=== PATIENT | male | born 1990 | race American Indian/Alaskan Native ===

== ENCOUNTER 2020-10-08 20:56 | Emergency (ER) | payer SELFPAY ==
--- NOTE | 2020-10-08 23:30 | Event Note ---
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 Further treatment and workup at subsequent clinical providers discretion. Patient/guardian urged not to elope from the ED as their condition may be serious if not clinically assessed and managed. Initial orders include: labs, UA, CT, US
--- NOTE | 2020-10-09 00:04 | Cat Scan Report ---
CT ABDOMEN AND PELVIS WITHOUT CONTRAST HISTORY: Patient complains of lower back pain that radiates to his groin x 3 days.. COMPARISON: None. TECHNIQUE: CT images of the abdomen and pelvis were obtained without administration of intravenous co ntrast. All CT scans at this location are performed using CT dose reduction for ALARA by means of au tomated exposure control. FINDINGS: Lungs/bones: Lung bases are clear. No acute osseous abnormality identified. Abdomen/pelvis: The liver, gallbladder, spleen, pancreas, adrenals, kidneys, and proximal GI tract a ppear unremarkable for limited noncontrast technique. Urinary bladder and prostate are unremarkable with no pelvic free fluid. No acute colonic abnormality identified. The appendix is normal. IMPRESSION: 1. No acute abnormality identified on this limited noncontrast exam. Signer Name: Pasquale Wong MD Signed: 10/09/2020 12:00 AM Workstation Name: [id number]
[2020-10-09 00:52] LABS: Basophils # (Auto) 0.1 K/mm3 (0.0-0.1); Basophils % (Auto) 1.2 % (0.0-1.8); Eosinophils # (Auto) 0.2 K/mm3 (0.0-0.4); Eosinophils % (Auto) 2.7 % (0.0-4.3); Hematocrit 45.3 % (35.5-45.6); Hemoglobin 15.3 gm/dl (11.8-15.2); Lymphocytes # (Auto) 2.1 K/mm3 (1.2-5.4); Lymphocytes % (Auto) 34.8 % (13.4-35.0); Mean Corpuscular HGB Conc 34 % (32-34); Mean Corpuscular Volume 89 fl (84-94); Monocytes # (Auto) 0.5 K/mm3 (0.0-0.8); Monocytes % (Auto) 7.8 % (0.0-7.3); Platelet Count 257 K/mm3 (140-440); Red Blood Count 5.11 M/mm3 (3.65-5.03); Red Cell Distribution Width 13.5 % (13.2-15.2)
[2020-10-09 01:03] LABS: Alanine Aminotransferase 17 units/L (7-56); Albumin 4.7 g/dL (3.9-5); BUN/Creatinine Ratio 12; Blood Urea Nitrogen 15 mg/dL (9-20); Calcium 9.8 mg/dL (8.4-10.2); Hemolysis Index 7
[2020-10-09 01:26] LABS: Bilirubin,Urine NEG (Negative); Blood,Urine NEG (Negative); Color,Urine Yellow (Yellow); Mucus,Urine FEW /HPF
--- NOTE | 2020-10-09 02:38 | Ultrasound Report ---
Scrotal Ultrasound HISTORY: left testicular pain. TECHNIQUE: Grayscale and color imaging performed. COMPARISON: CT abdomen from today FINDINGS: There is a 4 mm parenchymal calcification within the right testicle. Otherwise the testicle s are normal in size and appearance with preserved blood flow. Each epididymal head is normal in size and appearance as well. No hydrocele or varicocele. IMPRESSION: 1. No acute abnormality. 2. Incidental tiny calcification in the right epididymis could represent sequelae of prior infection or trauma. Signer Name: Pasquale Wong MD Signed: 10/09/2020 2:34 AM Workstation Name: [id number]
[2020-10-09] MEDS ORDERED: predniSONE 20 MG TAB PO ONE (04:01)
[2020-10-09] MEDS ORDERED: HYDROcodone/ACETAMINOPHEN 10-325MG TAB PO ONE (04:01)
[2020-10-09] MEDS ORDERED: KETOROLAC 60 MG/2 ML INJ IM ONE (04:01)
--- NOTE | 2020-10-09 05:00 | Emergency Department Report ---
ED Back Pain/Injury HPI - General Chief Complaint: Back Pain/Injury Stated Complaint: BACK PAINS Time Seen by Provider: 10/08/20 23:28 Source: patient Limitations: No Limitations - History of Present Illness Initial Comments: This is a 30-year-old male nontoxic, well nourished in appearance, no acute signs of distress presents to the ED with c/o of acute lower back pain with ra diation to groin area. Patient stated that the past 2 days he was moving and developed this pain. Patient denies any trauma or injuries. 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 Denies any bladder or bowel instability. Patient denies any urinary symptoms. Denies any fever, chills, nausea, vomiting, headache, stiff neck, chest pain or shortness of breath. Patient denies any numbness or tingling. Denies any allergies. Denies significant past medical history. MD Complaint: back pain -: days(s) Similar Symptoms Previously: Yes Place: work Radiation: groin Severity: mild Severity scale (0 -10): 8 Quality: aching Consistency: intermittent Improves With: immobilization, sitting upright Worsens With: movement, walking Context: while lifting, turning/twisting Associated Symptoms: denies other symptoms. denies: confusion, weakness, chest pain, numbness, difficulty walking, cough, difficulty urinating, diaphoresis, incontinence, fever/chills, constipation, headaches, abdominal pain, loss of appetite, malaise, nausea/vomiting, rash, seizure, shortness of breath, syncope - Related Data Previous Rx's Medication Instructions Recorded Last Taken Type Cyclobenzaprine [Flexeril] 10 mg PO QHS PRN #10 tablet 10/09/20 Unknown Rx Naproxen 500 mg PO Q12H PRN #12 tablet 10/09/20 Unknown Rx Allergies Allergy/AdvReac Type Severity Reaction Status Date / Time egg Allergy Swelling Verified 10/08/20 22:26 shellfish derived Allergy Rash Verified 10/08/20 22:26 ED Review of Systems ROS: Stated complaint: BACK PAINS Other details as noted in HPI Comment: All other systems reviewed and negative Constitutional: denies: chills, fever Eyes: denies: eye pain, eye discharge, vision change ENT: denies: ear pain, throat pain Respiratory: denies: cough, shortness of breath, wheezing Cardiovascular: denies: chest pain, palpitations Endocrine: no symptoms reported Gastrointestinal: denies: abdominal pain, nausea, vomiting, diarrhea Genitourinary: denies: urgency, dysuria Musculoskeletal: back pain. denies: joint swelling, arthralgia Skin: denies: rash, lesions Neurological: denies: headache, weakness, paresthesias Psychiatric: denies: anxiety, depression Hematological/Lymphatic: denies: easy bleeding, easy bruising ED Past Medical Hx - Past Medical History Previous Medical History?: No - Surgical History Past Surgical History?: No - Social History Smoking Status: Never Smoker Substance Use Type: None - Medications Home Medications: Home Medications Medication Instructions Recorded Confirmed Last Taken Type Cyclobenzaprine [Flexeril] 10 mg PO QHS PRN #10 tablet 10/09/20 Unknown Rx Naproxen 500 mg PO Q12H PRN #12 tablet 10/09/20 Unknown Rx ED Physical Exam - General Limitations: No Limitations General appearance: alert, in no apparent distress - Head Head exam: Present: atraumatic, normocephalic - Eye Eye exam: Present: normal appearance - Neck Neck exam: Present: normal inspection, full ROM. Absent: tenderness, meningismus, lymphadenopathy - Respiratory Respiratory exam: Absent: respiratory distress - Cardiovascular Cardiovascular Exam: Present: regular rate - GI/Abdominal GI/Abdominal exam: Present: soft, normal bowel sounds. Absent: distended, tenderness, guarding, rebound, rigid, diminished bowel sounds - exam: Present: normal inspection. Absent: testicular tenderness, urethral discharge, scrotal swelling, vertical testicular lie, circumcision External exam: Present: normal external exam. Absent: erythema, swelling, lesions, lacerations, ecchymosis, bleeding - Extremities Exam Extremities exam: Present: normal inspection, full ROM. Absent: tenderness - Back Exam Back exam: Present: normal inspection, full ROM, paraspinal tenderness (lumbar paraspinal). Absent: tenderness, CVA tenderness (R), CVA tenderness (L), muscle spasm, vertebral tenderness, rash noted - Expanded Back Exam Expanded Back exam: Absent: saddle anesthesia Back exam: Negative Straight Leg Raising: Left, Right - Neurological Exam Neurological exam: Present: alert, oriented X3, normal gait - Psychiatric Psychiatric exam: Present: normal affect, normal mood - Skin Skin exam: Present: warm, dry, intact, normal color. Absent: rash ED Course Vital Signs 10/08/20 22:28 Temperature 98.6 F Pulse Rate 76 Respiratory 16 Rate Blood Pressure 104/66 O2 Sat by Pulse 98 Oximetry - Reevaluation(s) Reevaluation #1: 10/09/20 05:02 Patient is speaking in full sentences with no signs of distress noted. ED Medical Decision Making - Lab Data Result diagrams: 10/08/20 23:55 10/09/20 Unknown Lab Results 10/08/20 10/08/20 10/09/20 Range/Units 23:55 Unknown Unknown WBC 5.9 (4.5-11.0) K/mm3 RBC 5.11 H (3.65-5.03) M/mm3 Hgb 15.3 H (11.8-15.2) gm/dl Hct 45.3 (35.5-45.6) % MCV 89 (84-94) fl MCH 30 (28-32) pg MCHC 34 (32-34) % RDW 13.5 (13.2-15.2) % Plt Count 257 (140-440) K/mm3 Lymph % (Auto) 34.8 (13.4-35.0) % [place] % (Auto) 7.8 H (0.0-7.3) % Eos % (Auto) 2.7 (0.0-4.3) % Baso % (Auto) 1.2 (0.0-1.8) % Lymph # (Auto) 2.1 (1.2-5.4) K/mm3 [place] # (Auto) 0.5 (0.0-0.8) K/mm3 Eos # (Auto) 0.2 (0.0-0.4) K/mm3 Baso # (Auto) 0.1 (0.0-0.1) K/mm3 Seg Neutrophils % 53.5 (40.0-70.0) % Seg Neutrophils # 3.2 (1.8-7.7) K/mm3 Sodium 142 (137-145) mmol/L Potassium 4.7 (3.6-5.0) mmol/L Chloride 102.5 (98-107) mmol/L Carbon Dioxide 29 (22-30) mmol/L Anion Gap 15 mmol/L BUN 15 (9-20) mg/dL Creatinine 1.3 (0.8-1.3) mg/dL Estimated GFR > 60 ml/min BUN/Creatinine Ratio 12 % Glucose 86 (75-100) mg/dL Calcium 9.8 (8.4-10.2) mg/dL Total Bilirubin 0.50 (0.1-1.2) mg/dL AST 24 (5-40) units/L ALT 17 (7-56) units/L Alkaline Phosphatase 54 (35-129) units/L Total Protein 7.1 (6.3-8.2) g/dL Albumin 4.7 (3.9-5) g/dL Albumin/Globulin Ratio 2.0 % Urine Color Yellow (Yellow) Urine Turbidity Clear (Clear) Urine pH 6.0 (5.0-7.0) Ur Specific [place] 1.030 (1.003-1.030) Urine Protein 30 mg/dl (Negative) mg/dL Urine Glucose (UA) Neg (Negative) mg/dL Urine Ketones Neg (Negative) mg/dL Urine Blood Neg (Negative) Urine Nitrite Neg (Negative) Urine Bilirubin Neg (Negative) Urine Urobilinogen 4.0 (<2.0) mg/dL Ur Leukocyte Esterase Neg (Negative) Urine WBC (Auto) 3.0 (0.0-6.0) /HPF Urine RBC (Auto) 2.0 (0.0-6.0) /HPF U Epithel Cells (Auto) < 1.0 (0-13.0) /HPF Urine Mucus Few /HPF - Radiology Data Referring Physician: ASHKAN DANIEL Patient Name: CHRISTINE BERMUDEZ Date of : 1990 Sex: Male Report Date: 2020-10-08 Report Status: Finalized [address] [address] Cat Scan Report Signed Patient: CHRISTINE BERMUDEZ MR#: [id number] 2 : 1990 Acct:[id number] Age/Sex: 30 / M ADM Date: 10/08/20 Loc: ED Attending Dr: Ordering Physician: SAURABH ANGEL Date of Service: 10/08/20 Procedure(s): CT abdomen pelvis wo con Accession Number(s): [id number] cc: SAURABH ANGEL CT ABDOMEN AND PELVIS WITHOUT CONTRAST HISTORY: Patient complains of lower back pain that radiates to his groin x 3 days.. COMPARISON: None. TECHNIQUE: CT images of the abdomen and pelvis were obtained without administration of intravenous contrast. All CT scans at this location are performed using CT dose reduction for ALARA by means of automated exposure control. FINDINGS: Lungs/bones: Lung bases are clear. No acute osseous abnormality identified. Abdomen/pelvis: The liver, gallbladder, spleen, pancreas, adrenals, kidneys, and proximal GI tract appear unremarkable for limited noncontrast technique. Urinary bladder and prostate are unremarkable with no pelvic free fluid. No acute colonic abnormality identified. The appendix is normal. IMPRESSION: 1. No acute abnormality identified on this limited noncontrast exam. Signer Name: Pasquale Wong MD Signed: 10/09/2020 12:00 AM Workstation Name: [id number] Transcribed By: SANDRA Dictated By: Pasquale Wong MD Electronically Authenticated By: Pasquale Wong MD Signed Date/Time: 10/09/20 0000 DD/ 2358 TD/TT: Referring Physician: ASHKAN DANIEL Patient Name: CHRISTINE BERMUDEZ Date of : 1990 Sex: Male Report Date: 2020-10-09 Report Status: Finalized [place] [id number] Ultrasound Report Signed Patient: CHRISTINE BERMUDEZ MR#: [id number] 2 : 1990 Acct:[id number] Age/Sex: 30 / M ADM Date: 10/08/20 Loc: ED Attending Dr: Ordering Physician: SAURABH ANGEL Date of Service: 10/08/20 Procedure(s): US testicular doppler comp Accession Number(s): [id number] cc: SAURABH ANGEL Scrotal Ultrasound HISTORY: left testicular pain. TECHNIQUE: Grayscale and color imaging performed. COMPARISON: CT abdomen from today FINDINGS: There is a 4 mm parenchymal calcification within the right testicle. Otherwise the testicles are normal in size and appearance with preserved blood flow. Each epididymal head is normal in size and appearance as well. No hydrocele or varicocele. IMPRESSION: 1. No acute abnormality. 2. Incidental tiny calcification in the right epididymis could represent sequelae of prior infection or trauma. Signer Name: Pasquale Wong MD Signed: 10/09/2020 2:34 AM Workstation Name: [id number] Transcribed By: SANDRA Dictated By: Pasquale Wong MD Electronically Authenticated By: Pasquale Wong MD Signed Date/Time: 10/09/20233 DD/ 2 TD/TT: - Medical Decision Making This is a 30-year-old male that presents with low back strain. Patient is stable was examined by me. There is no spinal tenderness. There is no cauda equina syndrome during examination. Labs and imaging studies has been obtained by previous provider. Patient is notified of the reports with no quesions noted by the patient. No bladder or bowel instability. Patient received Toradol 60 mg IM, prednisone, and Gilbert in the ED which stated that his symptoms has resolved and subsided. Stated will drive the patient home after discharge due to possible drowsiness of Gilbert. Patient is discharged with muscle relaxant and Motrin. Patient was instructed not to operate any machinery while taking muscle relaxant as they cause her drowsiness. Patient was referred to Follow-up with a primary care doctor in 3-5 days or if symptoms worsen and continue return to emergency room as soon as possible. At time of discharge, the patient does not seem toxic or ill in appearance. No acute signs of distress noted. Patient agrees to discharge treatment plan of care. No further questions noted by the patient. This chart is dictated with using [employer] D[employer]ation [employer] Critical care attestation.: If time is entered above; I have spent that time in minutes in the direct care of this critically ill patient, excluding procedure time. ED Disposition Clinical Impression: Low back strain Qualifiers: Encounter type: initial encounter Qualified Code(s): S39.012A - Strain of muscle, fascia and tendon of lower back, initial encounter Disposition: TO HOME OR SELFCARE Is pt being admited?: No Does the pt Need Aspirin: No Condition: Stable Instructions: Muscle Strain, [id number], Cyclobenzaprine tablets Additional Instructions: Follow-up with your primary care doctor in 3-5 days or if symptoms worsen such as bladder or bowel stability, chest pain, short of breath, numbness or tingling sensation in extremities, headache, dizziness, visual changes, nausea vomiting, or abdominal pain, return back to emergency room as was possible. Take ibuprofen and Flexeril as prescribed. Do not operate heavy machinery while taking Flexeril due to sedation Prescriptions: Cyclobenzaprine [Flexeril] 10 mg PO QHS PRN #10 tablet PRN Reason: Muscle Spasm Naproxen 500 mg PO Q12H PRN #12 tablet PRN Reason: Pain , Severe (7-10) Referrals: PRIMARY CAREMD [Primary Care Provider] - 3-5 Days HELEN PEREIRA MD [Staff Physician] - 3-5 Days Forms: Work/School Release Form(ED) Time of Disposition: 05:06
[2020-10-09 06:39] VITALS: BP 118/67
== END 2020-10-09 07:59 | disposition home or self-care (01) ==
LOC: ED 20:56
DX: S39.012A Strain of muscle, fascia and tendon of lower back, initial encounter (principal); Z79.899 Other long term (current) drug therapy; Z91.013 Allergy to seafood; Z91.012 Allergy to eggs; X50.0XXA Overexertion from strenuous movement or load, initial encounter; Y93.89 Activity, other specified; Y92.89 Other specified places as the place of occurrence of the external cause; Y99.0 Civilian activity done for income or pay
CPT/HCPCS: 36415; 74176; 80053; 81001; 85025; 93975; 96372; 99284; J1885; J7512